=== PATIENT | male | born 1945 | race Caucasian/White ===

== ENCOUNTER 2024-05-23 08:45 | Inpatient (IN) | payer MEDICARE ==
[~2024-05-23] VITALS: Ht 180.3 cm; Wt 85.7 kg
[2024-05-23] MEDS ORDERED: TDAP [DIPH/PERTUSSIS/TET] 0.5 ML VIAL IM ONE (09:11)
[2024-05-23] MEDS ORDERED: ACETAMINOPHEN ES 500 MG TABLET ONE (09:11)
[2024-05-23 09:24] LABS: BASOPHILS % (AUTO) 0.3 % (0.0-2.0); EOSINOPHILS # (AUTO) 0.2 K/uL (0.0-0.7); EOSINOPHILS % (AUTO) 1.7 % (0.0-6.0); HEMATOCRIT 41 % (39-51); LYMPHOCYTES # (AUTO) 1.5 K/uL (0.8-4.8); LYMPHOCYTES % (AUTO) 12.9 % (20.0-44.0); MEAN CORPUSCULAR HEMOGLOBIN 33 PG (26.0-33.0); MEAN CORPUSCULAR HGB CONC 34 g/dl (31.0-36.0); MEAN CORPUSCULAR VOLUME 95 fL (80-96); MONOCYTES # (AUTO) 0.7 K/uL (0.1-1.30); MONOCYTES % (AUTO) 5.9 % (2.0-12.0); NEUTROPHILS # (AUTO) 9.5 K/uL (1.8-8.9); NEUTROPHILS % (AUTO) 79.2 % (43.0-81.0); PLATELET COUNT (AUTO) 196 K/uL (150-450); RED BLOOD CELL COUNT(AUTO) 4.26 MIL/uL (4.5-6.0); RED CELL DISTRIBUTION WIDTH 14.4 % (11.5-15.0); WHITE BLOOD COUNT (AUTO) 11.9 K/uL (4.3-11.0)
[2024-05-23] MEDS: ACETAMINOPHEN ES 500 MG TABLET PO ONE (09:24)
[2024-05-23] MEDS: TDAP [DIPH/PERTUSSIS/TET] 0.5 ML VIAL IM ONE (09:27)
[2024-05-23 09:30] LABS: CALCIUM, SERUM 9.2 mg/dL (8.5-10.1); CARBON DIOXIDE 28 mmol/L (21-32); CHLORIDE 103 mmol/L (98-107); CREATININE 1.3 mg/dL (0.6-1.3); GLUCOSE 124 mg/dL (74-106); SODIUM SERUM 141 mmol/L (136-145); UREA NITROGEN, BLOOD 35 mg/dL (7-18)
[2024-05-23 09:42] LABS: ALANINE AMINOTRANSFERASE 31 U/L (12-78); ALBUMIN 3.2 g/dL (3.4-5.0); ALKALINE PHOSPHATASE 97 U/L (46-116); ASPARTATE AMINOTRANSFERASE 27 U/L (15-37); BILIRUBIN,DIRECT 0.4 mg/dL (0.0-0.2); BILIRUBIN,TOTAL 1.6 mg/dL (0.2-1.0); NT-PRO BNP 204 pg/mL (0-125); TOTAL PROTEIN, SERUM 7.5 g/dL (6.4-8.2)
[2024-05-23 12:00] VITALS: BP 135/72; TEMP 97.4; O2SAT 94
[2024-05-23] MEDS ORDERED: MAGNESIUM HYDROXIDE 30 ML UDC PO PRN (12:00)
[2024-05-23] MEDS ORDERED: ONDANSETRON HCL/PF 4 MG/2 ML VIAL IVP PRN (12:00)
[2024-05-23] MEDS ORDERED: Z GUARD REMEDY 4 OZ OINT TP PRN (12:00)
[2024-05-23] MEDS ORDERED: MAG HYDROX/AL HYDROX/SIMETH 30 ML UDC PO PRN (12:00)
[2024-05-23] MEDS ORDERED: ROSU40TA PO (12:54)
[2024-05-23] MEDS ORDERED: [UNRECOGNIZED DRUG - OTHER] PO (12:54)
[2024-05-23] MEDS ORDERED: PREG100C PO (12:54)
[2024-05-23] MEDS ORDERED: AMLO-212 PO (12:54)
[2024-05-23] MEDS ORDERED: ESCI20TA PO (12:54)
[2024-05-23] MEDS ORDERED: ACET-3102 PO (12:54)
[2024-05-23] MEDS ORDERED: CHOL100099 PO (12:54)
[2024-05-23] MEDS ORDERED: ZOLP10TA2 PO (12:54)
[2024-05-23] MEDS ORDERED: MELO-107 PO (12:54)
[2024-05-23] MEDS ORDERED: METO-357 PO (12:54)
[2024-05-23 14:24] VITALS: BP 135/72; TEMP 97.4; O2SAT 94
[2024-05-23] MEDS: IV NS 0.9% 1,000 ML IV PRN (14:52)
[2024-05-23 16:00] VITALS: BP 145/76; TEMP 97.5; O2SAT 94
[2024-05-23 17:48] LABS: APPEARANCE,URINE CLEAR (CLEAR); BILIRUBIN,URINE NEGATIVE (NEGATIVE); BLOOD, URINE NEGATIVE Ery/uL (NEGATIVE); COLOR,URINE YELLOW (YELLOW); KETONES,URINE NEGATIVE (NEGATIVE); LEUKOCYTE ESTERASE ,URINE NEGATIVE (NEGATIVE); NITRITE, URINE NEGATIVE (NEGATIVE); PROTEIN,URINE TRACE mg/dl (NEGATIVE); UGLUCOSE NEGATIVE (NEGATIVE); UROBILINOGEN,URINE 0.2 EU/dL (0.2)
[2024-05-23 17:49] LABS: CREATININE, URINE 161.5 MG/DL (30.0-125.0); URINE TOTAL PROTEIN 49.3 mg/dL (0-11.9)
[2024-05-23 18:51] LABS: ADD URINE CULTURE NO; BACTERIA,URINE None seen /HPF (None Seen); MUCUS,URINE Few /LPF (None Seen); RBC,URINE 0-2 /HPF (0-2); SQUAMOUS EPITHELIAL CELL,UR 0-2 /HPF (None Seen); WBC,URINE 0-2 /HPF (0-3)
[2024-05-23 19:40] LABS: EOSINOPHIL,URINE None Seen
[2024-05-23 20:08] VITALS: BP 143/76; TEMP 97.9; O2SAT 95
[2024-05-23] MEDS: ZOLPIDEM TARTRATE 10 MG TABLET PO PRN (23:02)
[2024-05-24 00:18] VITALS: BP 157/74; TEMP 98.2; O2SAT 92
[2024-05-24 04:10] VITALS: BP 152/86; TEMP 98.4; O2SAT 92
[2024-05-24 07:00] VITALS: BP 134/77; TEMP 98.1; O2SAT 95
[2024-05-24 07:26] LABS: BASOPHILS % (AUTO) 0.5 % (0.0-2.0); EOSINOPHILS # (AUTO) 0.2 K/uL (0.0-0.7); EOSINOPHILS % (AUTO) 2.3 % (0.0-6.0); HEMATOCRIT 37 % (39-51); HEMOGLOBIN 12.9 g/dL (13.5-17.5); LYMPHOCYTES # (AUTO) 1.6 K/uL (0.8-4.8); LYMPHOCYTES % (AUTO) 17.1 % (20.0-44.0); MEAN CORPUSCULAR HEMOGLOBIN 33 PG (26.0-33.0); MEAN CORPUSCULAR HGB CONC 35 g/dl (31.0-36.0); MEAN CORPUSCULAR VOLUME 96 fL (80-96); MONOCYTES # (AUTO) 0.6 K/uL (0.1-1.30); MONOCYTES % (AUTO) 6.5 % (2.0-12.0); NEUTROPHILS # (AUTO) 6.8 K/uL (1.8-8.9); NEUTROPHILS % (AUTO) 73.6 % (43.0-81.0); PLATELET COUNT (AUTO) 165 K/uL (150-450); RED BLOOD CELL COUNT(AUTO) 3.88 MIL/uL (4.5-6.0); WHITE BLOOD COUNT (AUTO) 9.3 K/uL (4.3-11.0)
[2024-05-24 07:40] LABS: CALCIUM, SERUM 8.6 mg/dL (8.5-10.1); CARBON DIOXIDE 25 mmol/L (21-32); CHLORIDE 104 mmol/L (98-107); GLUCOSE 111 mg/dL (74-106); MAGNESIUM 1.3 mg/dL (1.8-2.4); PHOSPHORUS 2.6 mg/dL (2.5-4.9); POTASSIUM 4.2 mmol/L (3.5-5.1); SODIUM SERUM 138 mmol/L (136-145); UREA NITROGEN, BLOOD 28 mg/dL (7-18)
[2024-05-24] MEDS: PANTOPRAZOLE 40 MG TABLET.DR PO SCH (07:40)
[2024-05-24 07:59] LABS: CHOLESTEROL 71 mg/dL (<200); HDL CHOLESTEROL 51 mg/dL (40-60); LDL 18 mg/dL (0-99); TRIGLYCERIDES 88 mg/dL (30-150)
[2024-05-24 09:34] LABS: THYROID STIMULATING HORMONE 0.12 uIU/mL (0.358-3.74)
[2024-05-24] MEDS: MAGNESIUM OXIDE 400 MG TABLET PO SCH (09:46)
[2024-05-24] MEDS: ASPIRIN EC 81 MG TABLET.DR PO SCH (09:46)
[2024-05-24] MEDS ORDERED: CT SWABBABLE VALVE TRANS SET 1 EA INFUS.SET MC ONE (10:01)
[2024-05-24] MEDS ORDERED: IOHEXOL-350 100 ML VIAL IV ONE (10:01)
[2024-05-24] MEDS ORDERED: IV NS 0.9% 250 ML IV ONE (10:02)
[2024-05-24 11:30] VITALS: BP 150/91; TEMP 97.7; O2SAT 93
[2024-05-24] MEDS ORDERED: ACETAMINOPHEN 325 MG TABLET PO PRN (12:30)
[2024-05-24] MEDS: LOSARTAN POTASSIUM 25 MG TABLET PO SCH (12:48)
[2024-05-24] MEDS: ACETAMINOPHEN 325 MG TABLET PO PRN (14:30)
[2024-05-24 16:00] VITALS: BP 131/83; TEMP 98.1; O2SAT 93
[2024-05-24 20:46] VITALS: BP 133/86; TEMP 98.2; O2SAT 94
[2024-05-24] MEDS: TRAZODONE 50 MG TABLET PO PRN (21:56)
[2024-05-25 00:09] VITALS: BP 136/69; TEMP 98.4; O2SAT 93
[2024-05-25 04:45] VITALS: BP 145/80; TEMP 98.2; O2SAT 91
[2024-05-25 06:57] LABS: BASOPHILS % (AUTO) 0.5 % (0.0-2.0); EOSINOPHILS # (AUTO) 0.2 K/uL (0.0-0.7); EOSINOPHILS % (AUTO) 2.4 % (0.0-6.0); HEMATOCRIT 33 % (39-51); HEMOGLOBIN 11.6 g/dL (13.5-17.5); LYMPHOCYTES # (AUTO) 1.1 K/uL (0.8-4.8); LYMPHOCYTES % (AUTO) 12.8 % (20.0-44.0); MEAN CORPUSCULAR HEMOGLOBIN 33 PG (26.0-33.0); MEAN CORPUSCULAR HGB CONC 35 g/dl (31.0-36.0); MEAN CORPUSCULAR VOLUME 95 fL (80-96); MONOCYTES # (AUTO) 0.7 K/uL (0.1-1.30); NEUTROPHILS # (AUTO) 6.7 K/uL (1.8-8.9); NEUTROPHILS % (AUTO) 76.3 % (43.0-81.0); PLATELET COUNT (AUTO) 150 K/uL (150-450); RED CELL DISTRIBUTION WIDTH 14.1 % (11.5-15.0); WHITE BLOOD COUNT (AUTO) 8.7 K/uL (4.3-11.0)
[2024-05-25 07:00] VITALS: BP 174/84; TEMP 98.2; O2SAT 95
[2024-05-25 07:05] LABS: CALCIUM, SERUM 8.1 mg/dL (8.5-10.1); CREATININE 0.9 mg/dL (0.6-1.3); MAGNESIUM 1.3 mg/dL (1.8-2.4); POTASSIUM 3.8 mmol/L (3.5-5.1)
[2024-05-25] MEDS: METOPROLOL SUCCINATE 50 MG TAB.SR.24H PO SCH (08:17)
[2024-05-25] MEDS: ESCITALOPRAM OXALATE (10 MG) 10 MG TABLET PO SCH (08:17)
[2024-05-25] MEDS: MELOXICAM 7.5 MG TABLET PO SCH (08:17)
[2024-05-25] MEDS: CHOLECALCIFEROL 1,000 UNIT TABLET (VIT D3) PO SCH (08:18)
[2024-05-25] MEDS: ATORVASTATIN 40 MG TABLET PO SCH (08:18)
[2024-05-25] MEDS: AMLODIPINE BESYLATE 5 MG TABLET PO SCH (08:18)
[2024-05-25] MEDS: MAGNESIUM OXIDE 400 MG TABLET PO ONE ×2 (09:36→10:25)
[2024-05-25] MEDS ORDERED: MAGNESIUM OXIDE 400 MG TABLET PO ONE (10:00)
[2024-05-25 11:00] VITALS: BP 137/80; TEMP 97.3; O2SAT 91
[2024-05-25 16:00] VITALS: BP 141/78; TEMP 97.9; O2SAT 92
[2024-05-25] MEDS: CLOTRIMAZOLE 1% 15 GM TUBE TP SCH (17:15)
[2024-05-25 20:00] VITALS: BP 137/75; TEMP 97.5; O2SAT 93
[2024-05-26] VITALS (7 sets, daily range): BP systolic 122–156; BP diastolic 70–83; TEMP 97.5–98.2; O2SAT 91–100
[2024-05-26 00:06] LABS: FOLIC ACID 3.6 ng/mL (>3.0)
[2024-05-26 07:07] LABS: CALCIUM, SERUM 8.7 mg/dL (8.5-10.1); CREATININE 1.1 mg/dL (0.6-1.3); MAGNESIUM 1.6 mg/dL (1.8-2.4); POTASSIUM 3.8 mmol/L (3.5-5.1)
[2024-05-26] MEDS: MAGNESIUM OXIDE 400 MG TABLET PO ONE (09:37)
[2024-05-27] VITALS: BP 151/69; TEMP 97.5; O2SAT 94
[2024-05-27 00:15] VITALS: BP 146/75; TEMP 97.5; O2SAT 91
[2024-05-27 04:00] VITALS: BP 152/82; TEMP 98.2; O2SAT 94
[2024-05-27 04:25] VITALS: BP 152/82; TEMP 98.2; O2SAT 90
[2024-05-27 07:00] VITALS: BP 172/73; TEMP 98.4; O2SAT 92
[2024-05-27 08:24] VITALS: BP 172/73
[2024-05-27] MEDS ORDERED: LOSA25TA27 PO (10:13)
[2024-05-27] MEDS ORDERED: TRAZ-182 PO (10:13)
[2024-05-27] MEDS ORDERED: CARBOXYMETHYLCELLULOSE SODIUM 0.4 ML DROPERETTE EACHEYE PRN (14:00)
[2024-05-27] MEDS ORDERED: POLYVINYL ALCOHOL 15 ML BOTTLE EACHEYE PRN (14:00)
== END 2024-05-27 16:30 | DRG 622 ==
LOC: ER 08:45 → TELE 11:43
PROVIDERS: ADMIT Nurse Practitioner Acute Care; ATTEND Nurse Practitioner Acute Care
PROC: 0HQ0XZZ Repair Scalp Skin, External Approach (ICD-10-PCS; principal; 2024-05-23)
PROC: 0JBN0ZZ Excision of Right Lower Leg Subcutaneous Tissue and Fascia, Open Approach (ICD-10-PCS; 2024-05-26)
PROC: 0JBP0ZZ Excision of Left Lower Leg Subcutaneous Tissue and Fascia, Open Approach (ICD-10-PCS; 2024-05-26)
DX: E86.0 Dehydration (principal); G92.8 Other toxic encephalopathy; I21.A1 Myocardial infarction type 2; F02.84 Dementia in other diseases classified elsewhere, unspecified severity, with anxiety; N17.9 Acute kidney failure, unspecified; L97.919 Non-pressure chronic ulcer of unspecified part of right lower leg with unspecified severity; L97.929 Non-pressure chronic ulcer of unspecified part of left lower leg with unspecified severity; G30.9 Alzheimer's disease, unspecified; S01.01XA Laceration without foreign body of scalp, initial encounter; W19.XXXA Unspecified fall, initial encounter; S81.812A Laceration without foreign body, left lower leg, initial encounter; S81.811A Laceration without foreign body, right lower leg, initial encounter; I10 Essential (primary) hypertension; I25.10 Atherosclerotic heart disease of native coronary artery without angina pectoris; Z95.5 Presence of coronary angioplasty implant and graft; Z95.0 Presence of cardiac pacemaker; R29.6 Repeated falls; I65.29 Occlusion and stenosis of unspecified carotid artery; Z91.199 Patient's noncompliance with other medical treatment and regimen due to unspecified reason; E83.42 Hypomagnesemia; Z91.81 History of falling; E78.5 Hyperlipidemia, unspecified; R62.7 Adult failure to thrive; R79.89 Other specified abnormal findings of blood chemistry; D64.9 Anemia, unspecified; S80.812A Abrasion, left lower leg, initial encounter; S80.811A Abrasion, right lower leg, initial encounter; Y92.009 Unspecified place in unspecified non-institutional (private) residence as the place of occurrence of the external cause; S40.812A Abrasion of left upper arm, initial encounter; S40.811A Abrasion of right upper arm, initial encounter; Z79.899 Other long term (current) drug therapy
CPT/HCPCS: 36415; 70450-TC; 70486-TC; 70496-TC; 70498-TC; 70551-TC; 71045-TC; 72125-TC; 72141-TC; 72170-TC; 80048-TC; 80061-TC; 80076-TC; 81001; 82550-TC; 82570-TC; 82607-TC; 82962-TC; 83735-TC; 83880; 83921; 84100-TC; 84300-TC; 84439-TC; 84443-TC; 84484-TC; 85025-TC; 90715; 92526; 92611-TC; 93307-TC; 97110-TC; 97116-TC; 97530-TC; 97535-TC; A4223; A6403; G0378; J7030; J7050; Q9967